=== PATIENT | female | born 1990 | race Caucasian/White ===

== ENCOUNTER 2020-12-25 10:38 | Emergency (ER) | payer BC, SELFPAY ==
[2020-12-25 11:11] LABS: Urine Blood 3+ (Negative); Urine Glucose Negative (Negative); Urine Protein 3+ (Negative); Urine Specific Gravity 1.025 (1.005-1.030)
[2020-12-25 11:24] LABS: Urine Specific Gravity/Preg 1.025 (1.005-1.030)
[2020-12-25 11:31] LABS: Absolute Lymphocytes (CBC) 1.8 K/uL (0.7-4.9); Basophils % 0.4 % (0-1.3); Hematocrit 36.2 % (36.0-45.0); Lymphocytes % 21.9 % (15.3-44.8); RBC Red Blood Cell Count 3.78 M/uL (3.86-4.86)
[2020-12-25 11:45] LABS: Urine Bacteria 20-50 /HPF (<20); Urine Mucus HEAVY /HPF (NONE SEEN); Urine RBC >50 /HPF (NONE SEEN)
--- NOTE | 2020-12-25 11:51 | EDPHYS ---
Physician Documentation [facility] Name: Doreen Butler Age: 30 yrs Sex: Female : 1990 Arrival Date: 12/25/2020 Time: 10:41 Bed Waiting Private MD: MITCHEL Physician Wilbert Jasso HPI: 12/25 11:46 This 30 yrs old Female presents to ER via Ambulatory with complaints of kb Vaginal Bleeding, + Preg <12wks. 11:46 The patient presents with vaginal bleeding that is moderate. Onset: The kb symptoms/episode began/occurred 5 day(s) ago. Modifying factors: The symptoms are alleviated by nothing, the symptoms are aggravated by nothing. Associated signs and symptoms: Pertinent positives: vaginal bleeding, Pertinent negatives: constipation, cramping, diarrhea, dyspareunia, dysuria, fever, hematuria, nausea, urinary frequency, vaginal bleeding, vaginal discharge. Severity of symptoms: At their worst the symptoms were moderate, in the emergency department the symptoms are unchanged. The patient has not experienced similar symptoms in the past. The patient has not recently seen a physician. Pt reports vaginal bleeding for 5 days. States she googled it and read that she was probably having a miscarriage so she came in. LMP 11/29/20. States she has not taken a test at home. . ROS: 11:50 Constitutional: Negative for fever, chills, and weight loss. kb 11:50 : Positive for vaginal bleeding. 11:50 All other systems are negative. Exam: 11:50 Constitutional: This is a well developed, well nourished patient who is awake, alert, kb and in no acute distress. Head/Face: Normocephalic, atraumatic. ENT: Moist Mucous membranes Respiratory: Respirations even and unlabored. No increased work of breathing, no retractions or nasal flaring. Skin: Warm, dry with normal turgor. Normal color. MS/ Extremity: Pulses equal, no cyanosis. Neurovascular intact. Full, normal range of motion. Neuro: Awake and alert, GCS 15, oriented to person, place, time, and situation. Moves all extremities. Normal gait. 11:50 Psych: Behavior/mood is anxious, Affect is animated, Oriented to person, place, time, Patient has no thoughts/intents to harm self or others. Judgement / Insight is normal. Memory is normal. Delusions/hallucinations are not present. Vital Signs: 11:23 BP 160 / 95; Pulse 97; Resp 17; Temp 99.7(O); Pulse Ox 100% on R/A; Weight 45.36 kg; mh5 Height 5 ft. 2 in. (157.48 cm); 11:23 Body Mass Index 18.29 (45.36 kg, 157.48 cm) 5 MDM: 11:19 Patient medically screened. kb 11:50 Data reviewed: vital signs, nurses notes. Data interpreted: Pulse oximetry: on room air kb is 100 %. Interpretation: normal. Counseling: I had a detailed discussion with the patient and/or guardian regarding: the historical points, exam findings, and any diagnostic results supporting the discharge/admit diagnosis, lab results, the need for outpatient follow up, an OB/Gyne specialist, to return to the emergency department if symptoms worsen or persist or if there are any questions or concerns that arise at home. 12/25 11:06 Order name: CBC with Diff; Complete Time: 11:41 iw 12/25 11:11 Order name: Urine Dipstick-Ancillary; Complete Time: 11:17 EDMS 12/25 11:06 Order name: Urine Dipstick-Ancillary (obtain specimen); Complete Time: 11:21 iw 12/25 11:06 Order name: Urine Test (obtain specimen); Complete Time: 11:21 iw 12/25 11:11 Order name: Urine Microscopic Only; Complete Time: 11:52 kb 12/25 11:12 Order name: Urine --Ancillary (enter results); Complete Time: 11:41 kb Administered Medications: No medications were administered Disposition: 12/26 07:38 Co-signature as Attending Physician, Wilbert Jasso MD I agree with the assessment and jose plan of care. Disposition Summary: 12/25/20 11:51 Discharge Ordered Location: Home kb Condition: Stable kb Diagnosis - Abnormal uterine and vaginal bleeding, unspecified kb Followup: kb - With: Emergency Department - When: As needed - Reason: Worsening of condition Followup: kb - With: Private Physician - When: 2 - 3 days - Reason: Recheck today's complaints, Continuance of care, Re-evaluation by your physician Discharge Instructions: - Discharge Summary Sheet kb - Abnormal Uterine Bleeding, [id number] kb Forms: - Medication Reconciliation Form kb - Thank You Letter kb - Antibiotic Education kb - Prescription Opioid Use kb Signatures: Dispatcher [employer] Charlotte Dupont, SQUIRREL MAN-C AVRIL-Wilbert Powers MD MD cha Williams, Irene RN RN iw
--- NOTE | 2020-12-25 11:51 | ER ---
Nurse's Notes [facility] Name: Doreen Butler Age: 30 yrs Sex: Female : 1990 Arrival Date: 12/25/2020 Time: 10:41 Bed Waiting Private MD: Diagnosis: Abnormal uterine and vaginal bleeding, unspecified Presentation: 12/25 11:11 Chief complaint: Patient states: vaginal bleeding for 5 days , has not done a home UPT. iw Initial Sepsis Screen: Does the patient meet any 2 criteria? No. Patient's initial sepsis screen is negative. Does the patient have a suspected source of infection? No. Patient's initial sepsis screen is negative. Risk Assessment: Do you want to hurt yourself or someone else? Patient reports no desire to harm self or others. Onset of symptoms was December 20, 2020. 11:11 Method Of Arrival: Ambulatory iw 11:11 Acuity: JOHNNIE 3 iw Vital Signs: 11:23 BP 160 / 95; Pulse 97; Resp 17; Temp 99.7(O); Pulse Ox 100% on R/A; Weight 45.36 kg; mh5 Height 5 ft. 2 in. (157.48 cm); 11:23 Body Mass Index 18.29 (45.36 kg, 157.48 cm) 5 ED Course: 10:41 Patient arrived in ED. ds1 11:11 Charlotte Smith FNP-C [facility]. kb 11:11 Wilbert Jasso MD is Attending Physician. kb 11:12 Triage completed. iw 11:21 CBC with Diff Sent. 5 11:21 Initial lab(s) drawn, by me, sent to lab. mh5 11:22 Patient has correct armband on for positive identification. 5 11:55 Tiffany Vann, RN is Primary Nurse. iw Administered Medications: No medications were administered Outcome: 11:51 Discharge ordered by MD. kb 11:55 Patient left the ED. iw Signatures: Charlotte Smith FNP-C FNP-Ckb Sanford, Demi ds1 Tiffany Vann, RN RN Berta Torres 5
[2020-12-25 12:01] VITALS: BP 160/95; TEMP 99.7; O2SAT 100
== END 2020-12-25 11:55 | disposition home or self-care (01) ==
LOC: ER 10:38
DX: N93.9 Abnormal uterine and vaginal bleeding, unspecified (principal)
CPT/HCPCS: 36415; 81003; 81015; 81025; 85025; 99282